=== PATIENT | male | born 1960 | race Caucasian/White ===

== ENCOUNTER → 2016-12-10 | Outpatient (CLI) | payer BC | END | disposition short-term general hospital (02) | LOC: CLONCO 08:49 → CLUROL 15:47 | DX: Z85.51 Personal history of malignant neoplasm of bladder (principal) ==

== ENCOUNTER → 2017-03-11 | Outpatient (CLI) | payer BC | END | disposition short-term general hospital (02) | LOC: CLUROL 05:23 | DX: Z48.816 Encounter for surgical aftercare following surgery on the genitourinary system (principal); Z85.51 Personal history of malignant neoplasm of bladder; Z90.6 Acquired absence of other parts of urinary tract ==

== ENCOUNTER → 2017-06-10 | Outpatient (CLI) | payer BC | END | disposition short-term general hospital (02) | LOC: CLUROL 08:58 | DX: N39.0 Urinary tract infection, site not specified (principal); Z85.51 Personal history of malignant neoplasm of bladder ==